=== PATIENT | male | born 1975 | race Caucasian/White ===

== ENCOUNTER 2022-06-24 01:05 | Day surgery (SDC) | payer OTHER, SELFPAY ==
[2022-06-16 15:25] VITALS: BMI 29.2
--- NOTE | 2022-06-23 16:55 | PM.HPGS ---
History of Present Illness History of Present Illness Consent: Risks, benefits, and alternatives have been discussed and questions answered. Patient agrees to proceed with procedure. Chief complaint: GERD Narrative: Fredo Jacobson is a 46 year old male referred because of refractory reflux symptoms. Despite taking esomeprazole twice a day and now pantoprazole, he will wake up with burning and regurgitation. This is primarily at night, even if he does not eat for 3 hours before laying down. It has gotten to the point that he will wake up gagging and choking on regurgitated liquids. He denies dysphagia. Review of Systems Review of Systems: All systems reviewed & are unremarkable except as noted in HPI and below PMFSH Social History Social History Smoking status: Former smoker Tobacco type: cigarettes Substance use type: does not use Living arrangements: with family Spiritual care concerns: No Meds Home Medications and Allergies Home Medications Medication Instructions Recorded Confirmed Type alprazolam 0.5 mg tablet 0.5 mg PO TID PRN Anxiety 06/16/22 06/24/22 History aspirin 81 mg tablet 81 mg PO DAILY 06/16/22 06/24/22 History esomeprazole magnesium 40 mg 40 mg PO QAM 06/16/22 06/24/22 History capsule,delayed release (Nexium) nebivolol 10 mg tablet (Bystolic) 10 mg PO DAILY 06/16/22 06/24/22 History pantoprazole 40 mg tablet,delayed 40 mg PO QPM 06/16/22 06/24/22 History release Allergies Allergy/AdvReac Type Severity Reaction Status Date / Time No Known Allergies Allergy Verified 06/24/22 10:24 Exam Const: General: alert Orientation/consciousness: patient oriented x3 Resp: Auscultation: clear to auscultation bilaterally Cardio: Rhythm: regular rhythm GI: GI Palp: Yes Soft to palpation and No Tenderness to palpation present (GI) Neuro: General: patient oriented x3 Assessment and Plan Assessment and plan (1) GERD (gastroesophageal reflux disease): Code(s): K21.9 - Gastro-esophageal reflux disease without esophagitis Status: Acute Assessment and Plan: EGD with possible biopsy or dilatation or cautery.
[2022-06-24 10:27] VITALS: BP 142/99; PULSE 57; RESP 20; TEMP 36.6; O2SAT 99; BMI 29.8
[2022-06-24] MEDS: LACTATED RINGERS 1,000 ML 150 ML IV CONT (10:30)
--- NOTE | 2022-06-24 10:59 | P.PNAN_ITS ---
Anes - Initial Pre Proc Eval Procedure: Operation Date: 06/24/22 11:30 Proposed Procedures p Esophagogastroduodenoscopy - Phil Arechiga MD Date/Time: 06/24/22 10:59 Surgeon: Pihl Arechiga MD Pre Op Diagnosis: GERD Patient Data Age: 46 Gender: M Height: 1.85 m Weight: 102.7 kg Last Vital Signs Temp 97.8 F 06/24/22 10:27 Pulse 57 L 06/24/22 10:27 Resp 20 06/24/22 10:27 BP 142/99 H 06/24/22 10:27 Pulse Ox 99 06/24/22 10:27 O2 Del Method Room Air 06/24/22 10:27 Allergies Allergy/AdvReac Type Severity Reaction Status Date / Time No Known Allergies Allergy Verified 06/24/22 10:24 Home Medications Medication Instructions Recorded Confirmed Type alprazolam 0.5 mg tablet 0.5 mg PO TID PRN Anxiety 06/16/22 06/24/22 History aspirin 81 mg tablet 81 mg PO DAILY 06/16/22 06/24/22 History esomeprazole magnesium 40 mg 40 mg PO QAM 06/16/22 06/24/22 History capsule,delayed release (Nexium) nebivolol 10 mg tablet (Bystolic) 10 mg PO DAILY 06/16/22 06/24/22 History pantoprazole 40 mg tablet,delayed 40 mg PO QPM 06/16/22 06/24/22 History release Patient hx anesthesia problems: none Family hx anesthesia problems: none Results Review: All pre-operative results and documents have been reviewed as part of the pre- operative evaluation. [facility] Social History Social History Smoking status: Former smoker Tobacco type: cigarettes Substance use type: does not use Living arrangements: with family Spiritual care concerns: No Anes - Eval Final PreProcedure Day of Procedure 06/24/22 10:59 Patient weight: normal Heart: regular rate and rhythm Lungs: clear to auscultation Airway: Mallampati scale class II Neurological: alert and oriented Last oral intake: >/= 8 hours ASA classification: II Emergent: no Anesthetic plan: proceed Anesthesia type and monitoring: general GIVS and standard monitoring Results Review: All pre-operative results and documents have been reviewed as part of the pre- operative evaluation. Informed Consent: The patient's anesthetic plan and its attendant risks and benefits were discussed with the patient/family/POA. Questions were solicited and answers provided to the satisfaction of the patient/family/POA.
[2022-06-24 11:51] VITALS: BP 113/75; PULSE 64; RESP 17; O2SAT 96
[2022-06-24 12:01] VITALS: BP 119/69; PULSE 60; RESP 18; O2SAT 97
[2022-06-24 12:11] VITALS: BP 131/87; PULSE 58; RESP 14; O2SAT 100
== END 2022-06-24 12:21 | disposition home or self-care (01) ==
PROVIDERS: PCP Nurse Practitioner Family; Visit Provider Internal Medicine Gastroenterology
PROC: 0DJ08ZZ Inspection of Upper Intestinal Tract, Via Natural or Artificial Opening Endoscopic (ICD-10-PCS; CPT 43235; principal; 2022-06-24 11:30)
DX: K21.9 Gastro-esophageal reflux disease without esophagitis (principal); K44.9 Diaphragmatic hernia without obstruction or gangrene; Z79.82 Long term (current) use of aspirin; Z87.891 Personal history of nicotine dependence
CPT/HCPCS: 43239; 88305; J2704; J7120

== ENCOUNTER 2023-01-11 08:46 | Outpatient (CLI) | payer OTHER, SELFPAY ==
--- NOTE | ~2023-01-11 | XR_ITS ---
EXAMINATION: XR UGI w barium swallow DATE: 01/11/2023 09:28 INDICATION: Gastroesophageal reflux disease without esophagitis TECHNIQUE: The patient drank thick barium, gas-producing crystals, and thin barium. Fluoroscopic spot radiographs of the hypopharynx, esophagus, stomach and proximal small bowel were obtained. A total o f 1100 fluoroscopic images were recorded. Fluoroscopy exposure time was 2.0 minutes. COMPARISON: None. FINDINGS: The pharynx is symmetric and without evidence of mass lesion or mucosal irregularity. The esophagus i s normal without mass or stricture. Esophageal motility is normal. There is a small sliding-type hiat al hernia extending 3-4 cm above level of the diaphragm. There is a single episode of reflux from the intra-abdominal and intrathoracic portion the stomach provocative maneuvers but no further gastroeso phageal reflux. The stomach and proximal small bowel are normal. IMPRESSION: 1. Small sliding-type hiatal hernia with single episode of reflux from the intra-abdominal into the i ntrathoracic portion of the stomach but without observed subsequent gastroesophageal reflux. Reviewed, dictated and finalized at location A. IMPRESSION: 1. Small sliding-type hiatal hernia with single episode of reflux from the intr a-abdominal into the intrathoracic portion of the stomach but without observed subsequent gastroesophageal reflux.
== END 2023-01-11 08:47 | disposition home or self-care (01) ==
PROVIDERS: PCP Nurse Practitioner Family; Visit Provider Surgery
DX: K21.9 Gastro-esophageal reflux disease without esophagitis (principal); K44.9 Diaphragmatic hernia without obstruction or gangrene
CPT/HCPCS: 74240

== ENCOUNTER 2023-03-29 13:09 | Outpatient (CLI) | payer OTHER, SELFPAY ==
--- NOTE | ~2023-03-29 | XR_ITS ---
EXAMINATION: XR chest 2V DATE: 03/29/2023 13:51 INDICATION: Gastroesophageal reflux disease TECHNIQUE: PA and lateral views of the chest are obtained. COMPARISON: None available FINDINGS: The lungs are free of acute opacities. No pleural effusion or pneumothorax. The cardiomedia stinal silhouette is normal. There is mild thoracic spondylosis. IMPRESSION: 1. No acute cardiopulmonary abnormality. Reviewed, dictated and finalized at location B. GER DOCUMENT
[2023-03-29 13:45] LABS: Basophils Absolute Auto 0.1 K/mm3 (0.0-0.1); Basophils Percent Auto 0.9 % (0.2-1.2); Eosinophils Absolute Auto 0.2 K/mm3 (0-0.3); Eosinophils Percent Auto 2.1 % (0-4.4); Hematocrit 44.3 % (42.0-52.0); Hemoglobin 14.9 g/dL (14.0-18.0); Immature Granulocyte Absolute 0.02 K/mm3 (0.00-0.031); Immature Granulocyte Percent A 0.3 % (0-0.5); Lymphocytes Absolute Auto 2.29 K/mm3 (0.9-3.2); Lymphocytes Percent Auto 29.7 % (18.3-44.2); Mean Corpuscular HGB Conc 33.6 g/dl (32-36); Mean Corpuscular Hemoglobin 29.9 pg (26-34); Monocytes Absolute Auto 0.5 K/mm3 (0.1-0.6); Monocytes Percent Auto 6.8 % (2.6-8.5); Neutrophils Absolute Auto 4.6 K/mm3 (1.3-6.7); Neutrophils Percent Auto 60.2 % (45.5-73.1); Platelet Count Result 239 k/mm3 (150-375); Red Blood Count 4.98 M/mm3 (4.6-6.20); Red Cell Distribution Width 12.7 % (11.5-14.5); White Blood Count 7.7 K/mm3 (4.5-10.0)
[2023-03-29 14:04] LABS: Anion Gap 10 mmol/L (8-16); Blood Urea Nitrogen 21 mg/dL (9-20); Calcium 9.4 mg/dL (8.4-10.2); Carbon Dioxide 25 mmol/L (22-30); Chloride 105 mmol/L (98-107); Estimated Glomerular Filt Rate > 60; Glucose 88 mg/dL (65-110); Potassium 3.8 mmol/L (3.4-5.0); Sodium 140 mmol/L (137-145)
--- NOTE | 2023-03-29 15:00 | ECG_ITS ---
Measurements Intervals [place] Rate: 72 P: 33 CT: 173 QRS: -9 QRSD: 99 T: 11 QT: 371 QTc: 408 Interpretive Statements SINUS RHYTHM NORMAL ECG NO PREVIOUS ECG AVAILABLE FOR COMPARISON Electronically Signed On 03-29-2023 17:23:07 [employer] by Greg Ramirez M.D.
== END 2023-03-29 13:10 | disposition home or self-care (01) ==
LOC: ANHSURGERY 13:16
PROVIDERS: PCP Nurse Practitioner Family; Visit Provider Surgery
DX: K21.9 Gastro-esophageal reflux disease without esophagitis (principal)
CPT/HCPCS: 36415; 71046; 80048; 85025; 86850; 86900; 86901; 93005

== ENCOUNTER 2023-04-02 09:02 | Inpatient (IN) | payer OTHER, SELFPAY ==
[2023-03-29 10:38] VITALS: BMI 29.0
--- NOTE | 2023-03-29 10:42 | PC.NURSE ---
Report to the Outpatient Waiting Room, entrance under the green pavilion located off [facility], at time 10:00 on date 04/01/23. Planned Procedure Time: 12:00. Time changes happen often and if your time is changed the preop area will call you the afternoon before. - You and your visitor will be asked to self-screen and do not enter if you have any COVID symptoms. - A mask is optional within the hospital at this time. Patients may have clear liquids (water, carbonated beverages, clear teas, apple juice) until 3 hours prior to surgery (9:00) with a maximum of 20 ounces. - No food from midnight until time of surgery Take the following medications with a SIP of water the morning of surgery: BYSTOLIC, XANAX IF NEEDED DO NOT STOP ANY OF YOUR OTHER PRESCRIPTION MEDICATIONS PRIOR TO SURGERY ?EXCEPT THE FOLLOWING Medications to discontinue per physician: VITAMINS/SUPPLEMENTS Date to take last dose: NO MORE UNTIL AFTER SURGERY Please no make-up, nail romansh, hairspray, perfume, deodorant, or body powder the day of surgery. No jewelry (including any body piercings) or valuables the day of surgery, leave them at home. Please take a shower or bath the night before, or the morning of, surgery with an antibacterial soap. Wear comfortable, loose fitting clothing. - Jewelry must be removed prior to entering the operating room. Rings and piercings that are not removed may be cut off. - The hospital will not accept responsibility for valuables. - Please leave all valuables, including medications, at home the day of surgery. If you are going home after surgery, a licensed vibratory pile driver must drive you home. - NO public transportation without another adult if you receive anesthesia. - We recommend that an adult stay with you for 24 hours following discharge. - We also recommend that you do not drive, make important decision, drink alcoholic beverages, or take any drugs that were not prescribed by your health care provider for at least 24 hours after your discharge time. Follow any additional instructions given to you from your surgeon. If you or anyone in your household have experienced Covid symptoms in the past week, please notify your surgeon or the nurse liaison at the phone number below for possible testing. Telephone instructions given to PT - [facility] and asked if any additional questions and then verbalized understanding. Patient advised to call surgeon office or pre surgery nurse liaison [phone] if any additional questions.
--- NOTE | 2023-03-31 15:53 | PM.IMHP ---
H&P: HPI History of Present Illness Date/Time: 03/31/23 15:53 Chief Complaint: Gastroesophageal reflux Narrative: Patient is a 47-year-old man who for many years has had symptomatic gastroesophageal reflux with heartburn. He was seen by Dr. Arechiga back in June and an EGD was performed. He had a small hiatal hernia and nonerosive reflux disease. Biopsies showed mild chronic inflammation but no metaplasia. Patient has been taking Nexium twice a day. Even with this medication he will occasionally wake up with burning and regurgitation. The symptoms are worse if he eats at night. Intermittently he will need to sleep sitting up. He had a barium swallow upper GI which showed a small hiatal hernia and an episode of reflux. He also had esophageal manometry at [facility]. This showed normal esophageal peristalsis and a hypotensive lower esophageal sphincter. An incompetent lower esophageal sphincter was also noted on his EGD. After thorough discussion, patient is taken to surgery now for laparoscopic Prema fundoplication for recalcitrant reflux. Review of Systems Review of Systems: All systems reviewed & are unremarkable except as noted in HPI and below (HPI and those items noted below) Constitutional: Constitutional: Denies chills and Denies fever(s) Cardiovascular: Cardiovascular: Denies chest pain, Denies diaphoresis, Denies dyspnea and Denies paroxysmal nocturnal dyspnea Respiratory: Respiratory: Denies chest congestion, Denies cough and Denies dyspnea Integumentary/Breasts: Skin/Breast: Denies lesions and Denies rash [facility] Past Medical History Medical History Hypertension Surgical History Surgical History Hx of shoulder surgery R shoulder labrum repair in 2020 at [facility] Family History Family History Other Hypertension Social History Social History Smoking packs per day: 1 Smoking cigarettes per day: 20.0 Years smoked: 16 Smoking pack-years: 16.00 Smoking status: Former smoker Tobacco type: cigarettes Smoking end date: 04/12/10 Alcohol intake: never Substance use: never Substance use type: does not use Living arrangements: with family Occupation/Education: occupation Spiritual care concerns: No Meds Home Medications and Allergies Home Medications Medication Instructions Recorded Confirmed Type alprazolam 0.5 mg tablet 0.5 mg PO TID PRN Anxiety 06/16/22 03/29/23 History aspirin 81 mg tablet 81 mg PO DAILY 06/16/22 03/29/23 History esomeprazole magnesium 40 mg 40 mg PO QAM 06/16/22 03/29/23 History capsule,delayed release (Nexium) nebivolol 10 mg tablet (Bystolic) 10 mg PO DAILY 06/16/22 03/29/23 History omega 0-ufq-fob-fish oil 1,000 mg 1 cap PO DAILY 03/29/23 03/29/23 History (120 mg-180 mg) capsule (Fish Oil) Allergies Allergy/AdvReac Type Severity Reaction Status Date / Time No Known Allergies Allergy Verified 03/29/23 10:37 Exam Const: General: comfortable, no acute distress, alert and awake HENMT: Head: normocephalic and atraumatic Mouth: Yes Normal oral and palatal mucosa present Eyes: Conjunctivae: conjunctivae normal Pupils: Equal, round and reactive pupils present EOM: EOMs intact bilaterally Neck: Neck: normal visual inspection, no lymphadenopathy and nontender Resp: Effort & Inspection: normal respiratory effort Auscultation: clear to auscultation bilaterally Cardio: Rate: regular rate Rhythm: regular rhythm Heart sounds: no gallops, no murmurs and no rubs GI: Inspection: non-distended GI Palp: Yes Soft to palpation, No Tenderness to palpation present (GI), No Hepatomegaly present and No Splenomegaly present Skin: Lesions: no lesions Rashes: no rashes Neuro: General: no focal motor deficits and CN'
[2023-04-01] VITALS (13 sets, daily range): BP systolic 117–147; BP diastolic 73–102; PULSE 64–101; RESP 15–20; TEMP 36.2–37.1; O2SAT 92–99
--- NOTE | 2023-04-01 08:36 | P.PNAN_ITS ---
Anes - Initial Pre Proc Eval Procedure: Operation Date: 04/01/23 12:00 Proposed Procedures p Laparoscopic Prema Fundoplication - Hunter Cuadra MD Date/Time: 04/01/23 08:36 Surgeon: Hunter Cuadra MD Pre Op Diagnosis: gerd Patient Data Age: 47 Gender: M Height: 1.85 m Weight: 99.8 kg Allergies Allergy/AdvReac Type Severity Reaction Status Date / Time No Known Allergies Allergy Verified 04/01/23 18:44 Home Medications Medication Instructions Recorded Confirmed Type alprazolam 0.5 mg tablet 0.5 mg PO TID PRN Anxiety 06/16/22 04/01/23 History aspirin 81 mg tablet 81 mg PO DAILY 06/16/22 04/01/23 History esomeprazole magnesium 40 mg 40 mg PO BID 06/16/22 04/01/23 History capsule,delayed release (Nexium) nebivolol 10 mg tablet (Bystolic) 10 mg PO DAILY 06/16/22 04/01/23 History omega 9-oeq-kqp-fish oil 1,000 mg 1 cap PO DAILY 03/29/23 04/01/23 History (120 mg-180 mg) capsule (Fish Oil) Patient hx anesthesia problems: none Family hx anesthesia problems: none Results Review: All pre-operative results and documents have been reviewed as part of the pre- operative evaluation. [facility] Past Medical History Medical History Hypertension Surgical History Surgical History Hx of shoulder surgery R shoulder labrum repair in 2020 at [facility] Family History Family History Other Hypertension Social History Social History Smoking packs per day: 1 Smoking cigarettes per day: 20.0 Years smoked: 16 Smoking pack-years: 16.00 Smoking status: Former smoker Tobacco type: cigarettes Smoking end date: 04/12/10 Alcohol intake: never Substance use: never Substance use type: does not use Do You Feel Safe in your Home?: Yes Lack of Transportation: No Lack of Food: Never True Current Housing: I Have Housing Concerned About Future Housing: No Difficulty Paying Gas/Electric Bills: No Difficulty Paying for Meds: No Currently Unemployed: No Education: Trade/Vocational Certificate Difficulty w/ Childcare or Family Care: No Living arrangements: with family Occupation/Education: occupation Spiritual care concerns: No Anes - Eval Final PreProcedure Day of Procedure 04/01/23 08:36 Patient weight: overweight Heart: regular rate and rhythm Lungs: clear to auscultation Airway: Mallampati scale class II Neurological: alert and oriented Last oral intake: >/= 8 hours ASA classification: II Emergent: no Anesthetic plan: proceed Anesthesia type and monitoring: general ETT and standard monitoring Results Review: All pre-operative results and documents have been reviewed as part of the pre- operative evaluation. Informed Consent: The patient's anesthetic plan and its attendant risks and benefits were discussed with the patient/family/POA. Questions were solicited and answers provided to the satisfaction of the patient/family/POA.
[2023-04-01] MEDS: LACTATED RINGERS 1,000 ML 30 ML IV CONT ×2 (10:31→16:27)
[2023-04-01] MEDS: ACETAMINOPHEN 500 MG TABLET 1000 MG PO (10:43)
--- NOTE | 2023-04-01 11:53 | WPDHPUPDATE1 ---
History and Physical Update Update Date/Time: 04/01/23 11:53 History and Physical has been reviewed, including an updated exam of the patient. There are NO changes in the patient's condition. Risks, benefits, and alternatives have been discussed and questions answered. Patient agrees to proceed with procedure.
[2023-04-01] MEDS: ceFAZolin 2 GM/D5W 50 ML 2 GM/50 ML BAG IVPB (12:01)
[2023-04-01] MEDS: BUPIVACAINE/EPINEPHRINE 0.5% 50 ML VIAL 30 ML INFILTRATE (12:40)
--- NOTE | 2023-04-01 16:08 | SUR.OPER ---
400 mL of clear, yellow urine drained from schaefer catheter in OR.
[2023-04-01] MEDS: fentaNYL CITRATE INJ (*CRX) 100 MCG/2 ML VIAL 25 MCG IV PUSH ×8 (16:39→17:50)
--- NOTE | 2023-04-01 17:13 | W.PM.PROC2 ---
Procedure Note - Detailed Date of Procedure 04/01/23 Pre-op Diagnosis gerd Post-op Diagnosis Other (Gastroesophageal reflux disease, right pneumothorax) Procedure Performed Laparoscopic Prema fundoplication, placement right chest 2 Surgeon Hunter Cuadra MD Senior Front End Engineer Chay Escalante, [facility] Anesthesia General and Local Indications Patient has had recalcitrant gastroesophageal reflux symptoms despite taking Nexium twice a day. He had an EGD that showed nonerosive gastroesophageal reflux. His esophageal manometry showed adequate peristalsis and a hypotensive lower esophageal sphincter. After discussion, he wishes to go ahead with laparoscopic Prema fundoplication to be carried out today. Findings Patient had a lot of adhesions particularly at the hernia at the esophageal hiatus. There were and many adhesions of the esophagus in the mediastinum suggesting chronic reflux and its consequences. During mobilization of the upper esophagus, a hole was made in the parietal pleura on the right side of the chest. This is unusual in that generally the left lung is more in jeopardy for pneumothorax during this procedure. In this case, however the right parietal pleura was adherent to the upper esophagus and during the dissection did developed a hole leading to a pneumothorax. Otherwise the patient had 6 cm of intra abdominal esophagus and a full 360 degree wrap. The procedure took longer but had what appeared to be an excellent result. Description of Procedure Patient was taken to surgery and induced into general anesthesia. The abdomen was prepped and draped. The initial trocar was planned for the midline above the umbilicus. Local was infiltrated and a small incision made. The varies needle was placed intraperitoneal as documented by saline drop test. We then insufflated through the varies needle until adequate abdominal distension had been obtained. And applied Medical 10 11 port optical trocar was then used to enter the peritoneal cavity. Full insufflation was then carried out and the camera was positioned here. We then placed next the left lateral subcostal 10 11 trocar using local anesthetic and direct visualization. With the camera moved to the left side, 2 more 10 11 ports were placed above the initial midline trocar and about 8 cm apart on the right and left side. From here, I went ahead and placed the Shant retractor. The initial plan for the Shant was directly over the cartilaginous portion of the sternum near the xiphoid process. I was able to advance the Shant into the abdomen but the direction it could be placed was not consistent with 1 that would elevate the lateral segment of the left lobe of the liver. I infiltrated more local and enlarged the incision to the patient's right. Still, I could not pass the lower portion of the sternum. The xiphoid was very difficult to feel and I really could only feel it once I had made the larger incision. From there, I placed an incision farther to the right and a little more caudal which worked nicely. I was able to advance the Shant retractor and elevate the lateral segment of the left lobe of the liver and secure the Shant retractor to the post, keeping it in good position. We used the LigaSure for nearly all dissection. I took down the gastrohepatic ligament which was mostly clear. There was lot of fatty tissue associated with the lesser omentum and perigastric fat socked in the esophageal hiatus. This was difficult to dissect. I started just medial to the right anna marie and carefully dissected until I was able to spread in to the mediastinum. From there, I continued the dissection slowly and created a small window into the mediastinum to the right of the esophagus. It was still difficult to see the posterior aspect of the right anna marie or any of the left anna marie due to the large amount of omentum and the fatty tissue in the hiatus. We continued dividing adhesive bands trying to stay mostly i
--- NOTE | 2023-04-01 18:51 | ADMGEN ---
This patient, Fredo Jacobson, was admitted to 3 [facility] Surg Room 300-01. Patient/family oriented to hospital policies and general routines including ID bracelet, bed and alarms, visiting hours, pain management, procedures, bathroom and other care routines, personal items, smoking policy, room service/diet, and visiting hours. Information on how to activate the Rapid Response Team has been discussed. Patient/Family are encouraged to report perceived risks to care and to ask questions if they do not understand what they are told or what they should do.
[2023-04-01] MEDS: MORPHINE SULFATE (*CRX) 4 MG/ML INJ IV PUSH (18:58)
[2023-04-01] MEDS: LACTATED RINGERS 1,000 ML 80 ML IV CONT (18:58)
[2023-04-01] MEDS: HYDROcodone/acetaminophen (*CRX) 10-325 MG TABLET 1 TAB PO (21:07)
[2023-04-01] MEDS: ENOXAPARIN 30 MG/0.3 ML SYRINGE SUB-Q (21:08)
[2023-04-01] MEDS: WATER FOR IRRIGATION, STERILE 1,000 ML BOTTLE 1000 ML (23:15)
[2023-04-02] VITALS (8 sets, daily range): BP systolic 122–137; BP diastolic 65–93; PULSE 88–100; RESP 14–20; TEMP 36.2–37.1; O2SAT 93–97
--- NOTE | ~2023-04-02 | XR_ITS ---
XR chest 1V portable DATE: 04/03/2023 05:46 INDICATION: Pneumothorax TECHNIQUE: Portable AP chest on 04/03/2023 at 0533 hours COMPARISON: 04/02/2023 PA and lateral chest FINDINGS: Right thoracostomy tube is unchanged in position since 04/02/2023. No pneumothorax is evide nt. There are bilateral infiltrates and/atelectasis, most prominent in both medial upper and both lower l blanca zones, left greater than right. Possible small left pleural effusion. Heart size is not optimally evaluated on AP projection because of magnification. IMPRESSION: Right thoracostomy tube; no current pneumothorax Bilateral infiltrates and/or atelectasis, relatively stable since 04/02/2023 and Reviewed, dictated and finalized at location A. OP ADMIN IMPRESSION: Right thoracostomy tube; no current pneumothorax Bilateral infiltrates and/or atelectasis, relatively stable since 04/02/2023 mary adams
--- NOTE | ~2023-04-02 | XR_ITS ---
EXAMINATION: XR chest 2V DATE: 04/02/2023 14:26 INDICATION: Chest tube suction to water seal TECHNIQUE: PA and lateral views of the chest were obtained. COMPARISON: Chest radiograph dated 04/02/2023 10:07 AM FINDINGS: Apically directed right chest tube remains in place with distal tip along the right superior mediasti num. No evident pneumothorax. Small lung volumes with persistent opacities at the medial aspect of th e bilateral lower lung zones most likely representing atelectasis although differential includes pneu monia. Blunting at the left posterior sulcus which could represent small pleural effusion or atelecta sis. Mild cardiomegaly. IMPRESSION: 1. Right chest tube remains in place with no pneumothorax. 2. Small lung volumes with persistent opacities at the medial aspect of the bilateral lower lung zone s and favor atelectasis over pneumonia. 3. Possible small left pleural effusion. 4. Cardiomegaly . Reviewed, dictated and finalized at location A. RNMENT PROPERTY INSPECTOR IMPRESSION: 1. Right chest tube remains in place with no pneumothorax. 2. Small lung volumes with persistent opacities at the medial aspect of the shonda ateral lower lung zones and favor atelectasis over pneumonia. 3. Possible small left pleural effusion. 4. Cardiomegaly .
--- NOTE | ~2023-04-02 | XR_ITS ---
EXAMINATION: XR chest-chest tube insert/pos INDICATION: Chest tube insertion, right pneumothorax TECHNIQUE: Portable AP chest at 1619 hours COMPARISON: 1422 hours FINDINGS: A right-sided chest tube has been inserted. The previously described right pneumothorax is no longer evident. The right lung is mostly reinflated. There appears to be persistent atelectasis in the right lung base. There is moderate retrocardiac opacification on the left. No pleural effusion i s identified. The endotracheal tube ends approximately 4.5 cm above the xander. IMPRESSION: 1. No persistent right pneumothorax identified post chest tube insertion. 2. Probable partial persistent atelectasis of the right lower lobe. 3. Retrocardiac opacities on the left, consistent with atelectasis versus pneumonia. Reviewed, dictated and finalized at location L. T REGISTRY OFFICER IMPRESSION: 1. No persistent right pneumothorax identified post chest tube insertion. 2. Probable partial persistent atelectasis of the right lower lobe. 3. Retrocardiac opacities on the left, consistent with atelectasis versus pneum onia.
--- NOTE | ~2023-04-02 | XR_ITS ---
Portable chest x-ray Comparison: 04/02/2023 Clinical History: Pneumothorax Findings: Right-sided chest tube remains in place. No visible pneumothorax. There is probable mild b ibasilar atelectatic change. Cardiomediastinal silhouette is stable. Bones and soft tissues are unre markable. Impression: Right-sided chest tube without visible pneumothorax. Probable bibasilar atelectatic change. Correlate for pneumonia. Reviewed, dictated and finalized at location . ER AND WRAPPER PACKER Impression: Right-sided chest tube without visible pneumothorax. Probable bibasilar atelectatic change. Correlate for pneumonia.
--- NOTE | ~2023-04-02 | XR_ITS ---
EXAMINATION: XR chest 1V portable INDICATION: Hypoxia TECHNIQUE: Portable AP chest at 1423 hours COMPARISON: 03/29/2023 FINDINGS: There is a moderate size right pneumothorax. The endotracheal tube ends 3.9 cm above the ca evangelista. There is moderate atelectasis of the right lung. The cardiomediastinal silhouette is normal. IMPRESSION: 1. Moderate size right pneumothorax. These findings were discussed with Dr. Hunter Cuadra MD at 14 39 hours on 04/01/2023. Reviewed, dictated and finalized at location L. RAFT SEAT UPHOLSTERER IMPRESSION: 1. Moderate size right pneumothorax. These findings were discussed with Dr. Alem Cuadra MD at 1439 hours on 04/01/2023.
--- NOTE | ~2023-04-02 | XR_ITS ---
Portable chest x-ray Comparison: 04/01/2023 Clinical History: Right pneumo thorax Findings: Right-sided chest tube is in place. No definite right pneumothorax seen. There is hazy bib asilar and perihilar airspace disease, left worse than right. Cardiomediastinal silhouette is stable . Bones and soft tissues are unremarkable. Impression: Right-sided chest tube without right pneumothorax. Patchy bibasilar and perihilar airspace disease, left worse than right. Correlate for atelectasis/pul monary edema versus pneumonia. Reviewed, dictated and finalized at [facility]. P MAKER Impression: Right-sided chest tube without right pneumothorax. Patchy bibasilar and perihilar airspace disease, left worse than right. Correla te for atelectasis/pulmonary edema versus pneumonia.
--- NOTE | ~2023-04-02 | XR_ITS ---
XR chest 1V portable 04/03/2023 16:06 Indication: Status post chest tube removal. Evaluate for pneumothorax. Procedure: AP portable chest Comparison: Comparison to multiple prior studies sequentially, with oldest reviewed study dated 03/13. Findings: No pneumothorax identified. Bibasilar airspace disease is present unchanged. Possible small effusion. No acute osseous abnormality. Impression: 1: Bibasilar infiltrates may represent atelectasis or pneumonia. Reviewed, dictated and finalized at location A. DING COMPONENTS DESIGNER Impression: 1: Bibasilar infiltrates may represent atelectasis or pneumonia.
[2023-04-02] MEDS: MORPHINE SULFATE (*CRX) 4 MG/ML INJ IV PUSH ×2 (03:25→19:32)
[2023-04-02] MEDS: LACTATED RINGERS 1,000 ML 80 ML IV CONT (06:06)
[2023-04-02] MEDS: HYDROcodone/acetaminophen (*CRX) 10-325 MG TABLET 1 TAB PO ×3 (06:16→21:35)
[2023-04-02 07:28] LABS: Hemoglobin 13.2 g/dL (14.0-18.0); Mean Corpuscular Volume 90.9 fl (80-100); Mean Platelet Volume 9.8 fl (7.4-10.4); Platelet Count Result 172 k/mm3 (150-375); Red Cell Distribution Width 12.7 % (11.5-14.5); White Blood Count 11.7 K/mm3 (4.5-10.0)
[2023-04-02 07:40] LABS: Potassium 4.1 mmol/L (3.4-5.0)
[2023-04-02 07:42] LABS: Anion Gap 5 mmol/L (8-16); Blood Urea Nitrogen 17 mg/dL (9-20); Calcium 8.8 mg/dL (8.4-10.2); Carbon Dioxide 25 mmol/L (22-30); Chloride 103 mmol/L (98-107); Estimated CRCL calculation 112 ml/min; Estimated Glomerular Filt Rate > 60; Glucose 106 mg/dL (65-110); Sodium 133 mmol/L (137-145)
--- NOTE | 2023-04-02 08:15 | PM.PNGS ---
Progress Note: A&P Assessment and Plan (1) Nonerosive gastroesophageal reflux disease: Code(s): K21.9 - Gastro-esophageal reflux disease without esophagitis Status: Chronic Assessment and Plan: Tolerating liquids well after fundoplication yesterday. Advanced to full liquids. Up in chair and walk in room today. Also add Ensure nutritional supplements. (2) Pneumothorax, right: Code(s): J93.9 - Pneumothorax, unspecified Status: Acute Assessment and Plan: No pneumothorax on suction. Will get chest x-ray on water seal. Subjective Subjective Date/Time Seen: 04/02/23 08:15 Post Op day: 1 Patient reports: still having pain (Mainly chest tube site), tolerating liquids well (No dysphagia as yet) and afebrile Exam Const: General: comfortable and no acute distress Orientation/consciousness: patient oriented x3 Chest: Chest palpation & inspection: abnormal inspection of the chest (Right chest tube dressing dry and intact.) Resp: Effort & Inspection: normal respiratory effort and other (No pleural leak noted) Auscultation: clear to auscultation bilaterally GI: Inspection: incision (Dry and healing) GI Palp: Yes Soft to palpation, Yes Tenderness to palpation present (GI), No Guarding due to palpation present (GI) and No Rebound tenderness present Auscultation: normal bowel sounds Neuro: General: patient oriented x3 and no focal motor deficits Extrem: General: no calf tenderness and no edema Psych: Affect: normal affect Insight: Good insight present (Psych) Judgement: Good judgement present (Psych) Objective Data Vital Signs Vital Signs: Vital Signs - 24 hr 04/01/23 10:11 04/01/23 16:27 04/01/23 16:30 Temperature 36.6 C 36.3 C L Pulse Rate 64 100 82 Respiratory Rate 16 18 20 Blood Pressure 147/102 H 136/87 117/80 Pulse Oximetry 99 92 94 Oxygen Delivery Room Air Simple Face Mask Simple Face Mask Oxygen Flow Rate 12 12 04/01/23 16:45 04/01/23 17:00 04/01/23 17:15 Temperature Pulse Rate 82 101 H 98 Respiratory Rate 17 17 16 Blood Pressure 129/88 126/73 136/80 Pulse Oximetry 96 96 96 Oxygen Delivery Simple Face Mask Simple Face Mask Nasal Cannula Oxygen Flow Rate 12 6 6 04/01/23 17:30 04/01/23 17:45 04/01/23 18:20 Temperature 36.3 C L Pulse Rate 101 H 97 94 Respiratory Rate 15 20 18 Blood Pressure 136/92 H 128/82 129/77 Pulse Oximetry 94 94 96 Oxygen Delivery High Flow Nasal Cannula High Flow Nasal Cannula Oxygen Flow Rate 6 6 04/01/23 18:35 04/01/23 19:05 04/01/23 20:05 Temperature 36.4 C 36.2 C L 37.1 C Pulse Rate 99 100 100 Respiratory Rate 18 18 18 Blood Pressure 130/76 134/88 117/79 Pulse Oximetry 96 97 97 Oxygen Delivery Oxygen Flow Rate 04/01/23 20:00 04/02/23 00:30 04/02/23 03:43 Temperature 36.9 C 36.3 C L Pulse Rate 100 96 Respiratory Rate 14 16 Blood Pressure 122/70 122/78 Pulse Oximetry 97 96 95 Oxygen Delivery High Flow Nasal Cannula Oxygen Flow Rate 6 04/02/23 07:43 Temperature 36.9 C Pulse Rate 90 Respiratory Rate 18 Blood Pressure 123/80 Pulse Oximetry 96 Oxygen Delivery Oxygen Flow Rate Intake/Output Intake/Output: Intake & Output 03/30/23 03/31/23 04/01/23 04/02/23 23:59 23:59 23:59 23:59 Intake Total 50 1350 Output Total 915 Balance 50 435 Meds/Results Medications: Active Medications Generic Name Dose Route Start Last Admin Trade Name Freq PRN Reason Stop Dose Admin Acetaminophen 500 mg 04/01/23 17:58 Acetaminophen 500 Mg Tablet PO Q6H PRN Mild Pain (1-3) or Fever Hydrocodone Bitart/Acetaminophen 1 tab 04/01/23 17:58 Hydrocodone/Acetaminophen (*Crx) 5-325 Mg Tablet PO Q4H PRN Pain Rated 4-6 Hydrocodone Bitart/Acetaminophen 1 tab 04/01/23 17:58 04/02/23 06:16 Hydrocodone/Acetaminophen (*Crx) 10-325 Mg Tablet PO 1 tab Q6H PRN Administration Pain Rated 7-10 Alprazolam 0.5 mg 04/01/23 17:58 Alprazolam (*Crx) 0.
[2023-04-02] MEDS: ASPIRIN 81 MG CHEWABLE TABLET PO (09:05)
[2023-04-02] MEDS: ENOXAPARIN 40 MG/0.4 ML SYRINGE SUB-Q (09:05)
[2023-04-02] MEDS: NEBIVOLOL HCL 5 MG TABLET 10 MG PO (09:06)
[2023-04-02] MEDS: PANTOPRAZOLE 40 MG TABLET PO (09:08)
--- NOTE | 2023-04-02 10:29 | WPDANESPN ---
Anes - Prog Note Post-Op Date/Time: 04/02/23 10:29 Cardiovascular status: normal Respiratory status: normal Airway patency: baseline Mental status: baseline Post-Op hydration status: normal Vital Signs: Last Vital Signs Temp 98.5 F 04/02/23 07:43 Pulse 88 04/02/23 09:06 Resp 18 04/02/23 07:43 BP 123/80 04/02/23 07:43 Pulse Ox 96 04/02/23 09:08 O2 Del Method High Flow Nasal Cannula 04/02/23 09:08 O2 Flow Rate 4 04/02/23 09:08 Pain Score (VAS): 0/10 I/O: Intake & Output 04/01/23 04/02/23 04/02/23 23:59 07:59 15:59 Intake Total 1350 Output Total 915 250 Balance 435 -250 Laboratory Tests 04/02/23 07:19 04/02/23 07:19 04/02/23 07:19 WBC 11.7 H RBC 4.40 L Hgb 13.2 L Hct 40.0 L MCV 90.9 MCH 30.0 MCHC 33.0 RDW 12.7 Plt Count 172 MPV 9.8 Sodium 133 L Potassium 4.1 Chloride 103 Carbon Dioxide 25 Anion Gap 5 L BUN 17 Creatinine 0.80 Estim Creat Clear Calc 112 Estimated GFR > 60 Glucose 106 Calcium 8.8 Post-procedural complaints: none Patient Feedback: Patient satisfied with anesthetic care. Other Findings: Chest tube still in place
[2023-04-03] VITALS (7 sets, daily range): BP systolic 135–145; BP diastolic 88–95; PULSE 72–88; RESP 16–18; TEMP 36.3–37.1; O2SAT 90–93
[2023-04-03] MEDS: HYDROcodone/acetaminophen (*CRX) 5-325 MG TABLET 1 TAB PO ×3 (01:40→20:16)
[2023-04-03] MEDS: HYDROcodone/acetaminophen (*CRX) 10-325 MG TABLET 1 TAB PO ×2 (06:01→16:17)
[2023-04-03 06:15] LABS: Hematocrit 40.2 % (42.0-52.0); Hemoglobin 13.8 g/dL (14.0-18.0); Mean Corpuscular HGB Conc 34.3 g/dl (32-36); Mean Corpuscular Hemoglobin 30.4 pg (26-34); Mean Corpuscular Volume 88.5 fl (80-100); Mean Platelet Volume 10.3 fl (7.4-10.4); Platelet Count Result 172 k/mm3 (150-375); Red Blood Count 4.54 M/mm3 (4.6-6.20); Red Cell Distribution Width 12.7 % (11.5-14.5); White Blood Count 8.7 K/mm3 (4.5-10.0)
[2023-04-03 06:36] LABS: Anion Gap 7 mmol/L (8-16); Blood Urea Nitrogen 14 mg/dL (9-20); Calcium 8.8 mg/dL (8.4-10.2); Carbon Dioxide 27 mmol/L (22-30); Chloride 102 mmol/L (98-107); Estimated CRCL calculation 127 ml/min; Estimated Glomerular Filt Rate > 60; Glucose 104 mg/dL (65-110); Potassium 4.1 mmol/L (3.4-5.0); Sodium 136 mmol/L (137-145)
[2023-04-03] MEDS: ENOXAPARIN 40 MG/0.4 ML SYRINGE SUB-Q (09:51)
[2023-04-03] MEDS: NEBIVOLOL HCL 5 MG TABLET 10 MG PO (09:52)
[2023-04-03] MEDS: ASPIRIN 81 MG CHEWABLE TABLET PO (09:52)
[2023-04-03] MEDS: PANTOPRAZOLE 40 MG TABLET PO (09:52)
--- NOTE | 2023-04-03 11:30 | PM.PNGS ---
Progress Note: A&P Assessment and Plan (1) Pneumothorax, right: Code(s): J93.9 - Pneumothorax, unspecified Status: Acute Assessment and Plan: Resolved. Right chest removed today. (2) GERD (gastroesophageal reflux disease): Code(s): K21.9 - Gastro-esophageal reflux disease without esophagitis Status: Acute Assessment and Plan: Status post laparoscopic Prema fundoplication. Tolerating liquid diet okay. Will switch him to a soft diet today. If he is tolerating that the edema discharged home. Chest x-ray in 4hours after removal chest to and if that is okay then he can go home this evening. Subjective Subjective Date/Time Seen: 04/03/23 11:30 Interval history: Patient is doing well today. No chest pain or shortness of breath. Chest x-ray today shows no evidence of right pneumothorax with the chest tube on water seal. He is tolerating full liquids without difficulty. Exam Chest: Other: Right chest tube in place. No air leak with cough. Chest tube site is clean and dry. Resp: Effort & Inspection: normal respiratory effort and able to speak in complete sentences Auscultation: clear to auscultation bilaterally GI: Other: Abdomen is soft and benign. Port site incisions are healing well without redness or drainage. Objective Data Vital Signs Vital Signs: Vital Signs - 24 hr 04/02/23 11:53 04/02/23 16:19 04/02/23 20:00 Temperature 37.1 C 37.0 C 36.2 C L Pulse Rate 93 92 91 Respiratory Rate 18 20 16 Blood Pressure 122/65 135/89 137/93 H Pulse Oximetry 97 95 93 Oxygen Delivery Oxygen Flow Rate 04/03/23 00:00 04/03/23 04:00 04/02/23 20:00 Temperature 37.0 C 37.1 C Pulse Rate 88 87 Respiratory Rate 18 16 Blood Pressure 140/89 135/94 H Pulse Oximetry 93 93 93 Oxygen Delivery High Flow Nasal Cannula Oxygen Flow Rate 1 04/03/23 06:05 04/03/23 09:52 Temperature Pulse Rate 72 Respiratory Rate Blood Pressure Pulse Oximetry 91 Oxygen Delivery Oxygen Flow Rate Intake/Output Intake/Output: Intake & Output 03/31/23 04/01/23 04/02/23 04/03/23 23:59 23:59 23:59 23:59 Intake Total 50 1880 718 Output Total 2090 1080 Balance 69 -317 -650 Meds/Results Medications: Active Medications Generic Name Dose Route Start Last Admin Trade Name Freq PRN Reason Stop Dose Admin Acetaminophen 500 mg 04/01/23 17:58 Acetaminophen 500 Mg Tablet PO Q6H PRN Mild Pain (1-3) or Fever Hydrocodone Bitart/Acetaminophen 1 tab 04/01/23 17:58 04/03/23 09:53 Hydrocodone/Acetaminophen (*Crx) 5-325 Mg Tablet PO 1 tab Q4H PRN Administration Pain Rated 4-6 Hydrocodone Bitart/Acetaminophen 1 tab 04/01/23 17:58 04/03/23 06:01 Hydrocodone/Acetaminophen (*Crx) 10-325 Mg Tablet PO 1 tab Q6H PRN Administration Pain Rated 7-10 Alprazolam 0.5 mg 04/01/23 17:58 Alprazolam (*Crx) 0.5 Mg Tablet PO TID PRN Anxiety Aspirin 81 mg 04/02/23 08:00 04/03/23 09:52 Aspirin 81 Mg Chewable Tablet PO 81 mg DAILY@0800 LANCE Administration Enoxaparin Sodium 40 mg 04/02/23 09:00 04/03/23 09:51 Enoxaparin 40 Mg/0.4 Ml Syringe SUB-Q 40 mg DAILY LANCE Administration Ibuprofen 800 mg in 200 mls @ 400 mls/hr 04/01/23 17:58 Caldolor 800 Mg/200 Ml IVPB Q6H PRN Pain Rated 1-3 Morphine Sulfate 2 mg 04/01/23 17:58 Morphine Sulfate (*Crx) 2 Mg/Ml Inj IV PUSH Q2H PRN Pain Rated 4-6 Morphine Sulfate 4 mg 04/01/23 17:58 04/02/23 19:32 Morphine Sulfate (*Crx) 4 Mg/Ml Inj IV PUSH 4 mg Q2H PRN Administration Pain Rated 7-10 Naloxone HCl 0.1 mg 04/01/23 17:58 Naloxone Hcl 0.4 Mg/Ml Vial IV PUSH Q2M PRN Opiate Reversal Nebivolol 10 mg 04/02/23 09:00 04/03/23 09:52 Nebivolol Hcl 5 Mg Tablet PO 10 mg DAILY LANCE Administration Pantoprazole Sodium 40 mg 04/02/23 09:00 04/03/23 09:52 Pantoprazole 40 Mg Tablet PO 40 mg
--- NOTE | 2023-04-03 12:30 | PC.NURSE ---
Patient sitting in bed upon morning assessment. Chest tube in place, dressing CDI, no drainage. 1145: Chest tube removed by MD with no complications. CXR scheduled for 1600. Family at bedside.
--- NOTE | 2023-04-03 16:31 | PC.NURSE ---
[address] Whelan patient can discharge after supper if he is able to tolerate solid food.
[2023-04-04 06:14] LABS: Hematocrit 42.9 % (42.0-52.0); Hemoglobin 14.5 g/dL (14.0-18.0); Mean Corpuscular HGB Conc 33.8 g/dl (32-36); Mean Corpuscular Volume 88.8 fl (80-100); Mean Platelet Volume 10.2 fl (7.4-10.4); Platelet Count Result 194 k/mm3 (150-375); Red Blood Count 4.83 M/mm3 (4.6-6.20); Red Cell Distribution Width 12.4 % (11.5-14.5); White Blood Count 7.9 K/mm3 (4.5-10.0)
[2023-04-04 06:19] VITALS: BP 140/94; PULSE 90; RESP 16; TEMP 36.5; O2SAT 92
[2023-04-04 06:31] LABS: Anion Gap 10 mmol/L (8-16); Blood Urea Nitrogen 15 mg/dL (9-20); Calcium 9.2 mg/dL (8.4-10.2); Carbon Dioxide 28 mmol/L (22-30); Chloride 99 mmol/L (98-107); Estimated CRCL calculation 112 ml/min; Estimated Glomerular Filt Rate > 60; Glucose 103 mg/dL (65-110); Potassium 4.1 mmol/L (3.4-5.0); Sodium 137 mmol/L (137-145)
[2023-04-04] MEDS: ASPIRIN 81 MG CHEWABLE TABLET PO (08:38)
[2023-04-04] MEDS: PANTOPRAZOLE 40 MG TABLET PO (08:38)
[2023-04-04 08:39] VITALS: PULSE 84
[2023-04-04] MEDS: NEBIVOLOL HCL 5 MG TABLET 10 MG PO (08:39)
[2023-04-04] MEDS: ENOXAPARIN 40 MG/0.4 ML SYRINGE SUB-Q (08:44)
[2023-04-04] MEDS: HYDROcodone/acetaminophen (*CRX) 5-325 MG TABLET 1 TAB PO (10:40)
--- NOTE | 2023-04-16 09:40 | PM.DS ---
DS: Admitting Diagnosis Discharge Date 04/04/23 Admitting Diagnosis Recalcitrant gastroesophageal reflux disease Essential hypertension DS: Discharge Diagnosis Discharge Diagnosis (1) Nonerosive gastroesophageal reflux disease: Code(s): K21.9 - Gastro-esophageal reflux disease without esophagitis Status: Chronic (2) Pneumothorax, right: Code(s): J93.9 - Pneumothorax, unspecified Status: Resolved (3) Hypertension: Qualifiers: Hypertension type: primary hypertension Qualified Code(s): I10 - Essential (primary) hypertension Code(s): I10 - Essential (primary) hypertension Status: Chronic DS: Summary Hospital Course Hospital Course: Patient is a 47-year-old man who has had significant problems with gastroesophageal reflux disease. He had an EGD which showed nonerosive gastroesophageal reflux. He had been taking Nexium twice a day and still would have episodes of regurgitation and reflux. He was seen in the office. He had esophageal manometry as well as an upper GI. He was taken to surgery on 04/01/2023 and laparoscopic Prema fundoplication was performed. During the surgery, while dissecting the upper esophagus, an opening was made in the parietal pleura of the right chest. Patient had evidence of a right pneumothorax clinically and by portable x-ray. A right chest tube was placed during the surgery which resolved this problem. The surgery was completed uneventfully. Postoperatively, the chest tube was placed to water seal on postop day 1. It was able to be removed on postoperative day 2. By postoperative day 3., the patient's pain was diminished and he was very comfortable with only oral analgesics. He was ambulating and tolerating full liquids without difficulty. He was able to be discharged in good condition on 04/04/2023. He was continued on his Nexium once a day postop Status at Discharge Functional status at discharge: independent ambulation Overall status at discharge: patient is progressing back to baseline Time Spent with Patient Time attestation: Total time spent providing and/or coordinating discharge services: Time spent: Less than 30 minutes Discharge Plan Discharge Attending physician on discharge: Hunter Cuadra Consulting providers: Efraín Alaniz; Rufus Garrett; Dusty Han; Deon Gonzales; Nick Valderrama; Cristino Toro; Victor Manuel Rhodes Discharging Clinician: Sherif Whelan Patient Disposition: Home, Self-Care Activity: as tolerated and other - see discharge instructions Diet: other - see discharge instructions Discharge Instructions: Ambulate 3-4 x per day and as tolerated. No lifting over 15-20lbs. May bathe or shower once chest dressing is off or can be removed. Stairs are OK. May drive a car in 3 days. Full Liquid diet with Ensure Enlive for now. Eat/Drink slowly, as we discussed. Continue Nexium daily after discharge. Will stop it after about a month. Call for severe pain (chest or abdomen), fever >101, vomitting, shortness of breath, or other significant change in condition. Patient Instructions: Chest Tubes (DC) Stand Alone Forms: General Discharge Information Follow-up/Referrals: Hunter Cuadra MD [Physician] - 2 Weeks Discharge Medications: Continued alprazolam 0.5 mg Tablet 0.5 mg PO TID PRN (Reason: Anxiety) aspirin 81 mg Tablet 81 mg PO DAILY nebivolol [Bystolic] 10 mg Tablet 10 mg PO DAILY omega [id number] oil [Fish Oil] 1,000 mg (120 mg-180 mg) Capsule 1 cap PO DAILY Discontinued esomeprazole magnesium [Nexium] 40 mg Capsule,Delayed Release(Dr/Ec) 40 mg PO BID Date of admission: 04/02/23 09:02 Primary Care Provider: Tay,Denise Chacon Admitting Provider: Hunter Cuadra Attending physician on admission: Sherif Whelan Condition: Improved
== END 2023-04-04 10:55 | disposition home or self-care (01) | DRG 327 ==
LOC: ANH3MEDSUR 13:07 → ANHSURGERY 04-21 08:51
PROVIDERS: Admitting Provider Surgery; PCP Nurse Practitioner Family; Visit Provider Surgery
PROC: 0DV44ZZ Restriction of Esophagogastric Junction, Percutaneous Endoscopic Approach (ICD-10-PCS; CPT 43281; principal; 2023-04-01 12:00)
DX: K21.9 Gastro-esophageal reflux disease without esophagitis (principal); J95.811 Postprocedural pneumothorax; K44.9 Diaphragmatic hernia without obstruction or gangrene; I10 Essential (primary) hypertension; Z87.891 Personal history of nicotine dependence; Z79.82 Long term (current) use of aspirin
CPT/HCPCS: 36415; 71045; 71046; 80048; 85027; A9270; C1729; J0330; J0690; J1100; J1170; J1200; J1650; J2250; J2270; J2371; J2405; J2704; J3010; J7030; J7120

== ENCOUNTER 2023-04-29 09:55 | Outpatient (CLI) | payer OTHER, SELFPAY ==
--- NOTE | ~2023-04-29 | XR_ITS ---
EXAMINATION: XR chest 2V 04/29/2023 10:13 INDICATION: Chest pain PROCEDURE: 2 view chest COMPARISON: Comparison to multiple prior studies sequentially, with oldest reviewed study dated 03/13. . FINDINGS: The lungs are clear. The cardiomediastinal silhouette is within normal limits. There are no pleural effusions. There is no pneumothorax suspected. IMPRESSION: 1: NO ACUTE CARDIOPULMONARY DISEASE. Reviewed, dictated and finalized at location A. URCE CENTER TEACHER
== END 2023-04-29 09:56 | disposition home or self-care (01) ==
PROVIDERS: PCP Nurse Practitioner Family; Visit Provider Surgery
DX: R07.9 Chest pain, unspecified (principal); Z87.09 Personal history of other diseases of the respiratory system
CPT/HCPCS: 71046

== ENCOUNTER 2024-04-28 13:56 | Outpatient (CLI) | payer OTHER, SELFPAY ==
--- NOTE | ~2024-04-28 | XR_ITS ---
EXAM: XR shoulder RT min 2V DATE: 04/28/2024 14:05 HISTORY: LIFTING INJURY OF R SHOULDER X 1 WK AGO . COMPARISON: None available. FINDINGS: Normal mineralization. No fracture or dislocation. No lytic or blastic lesion. Mild degene rative change at the AC joint and glenohumeral joint. No erosion or periosteal change. Soft tissues w ithin normal limits. IMPRESSION: Mild polyarticular right shoulder osteoarthritis. Reviewed, dictated and finalized at location K. UP MECHANIC
--- OUTSIDE RECORDS SUMMARY | 2024-05-04 07:02 | XMS_ITS | Data Portability ---
Author Organization [place] - [facility] [employer], Main Office Address [address] [place] [address] Assessment Encounter Date Assessment Date Assessment LastModified by Organization Details LastModified Time 12/02/2022 12/02/2022 Cscope- cologuard 07/2021- repeat 07/2024 PSA- age 50 WEA-12/02/22 Call office if worse, ER if life threatening illness RTC 6 weeks He voices understanding of plan and agrees Not available 12/02/2022 16:29:38 01/13/2023 01/13/2023 Cscope- cologuard 07/2021- repeat 07/2024 PSA- age 50 WEA-12/02/22 Call office if worse, ER if life threatening illness RTC 6 months and PRN He voices understanding of plan and agrees Not available 01/13/2023 14:23:46 Plan of Treatment Reminders Order Date Submit Date Provider Last Modified By Organization Details Last Modified Time Details Appointments Any 15 2024 01:00P Spenser Lopez APRN Not available Not available Not available Lab CBC w/ auto diff 2022 023 [employer] [facility], [address], [place], [address], 01/13/2023 15:40:37 CMP, serum or plasma 2022 023 [facility], [address], [place], [address], 01/13/2023 15:40:36 HbA1c (hemog lobin A1c), blood 2022 023 [facility], [address], [place], [address], 01/13/2023 15:40:37 lipid panel, serum 2022 023 [facility], [address], [place], [address], 01/13/2023 15:40:36 TSH, serum or plasma 2022 023 [facility], [address], [place], [address], 01/13/2023 15:40:37 CBC w/ auto diff 2023 024 [email or web address], [address], [place], [address], 08/11/2023 09:01:01 CMP, serum or plasma 2023 024 [email or web address], [address], [place], [address], 08/11/2023 09:01:01 TSH, serum or plasma 2023 024 [email or web address], [address], [place], [address], 08/11/2023 09:01:01 HbA1c (hemog lobin A1c), blood 2023 024 [email or web address], [address], [place], [address], 08/11/2023 09:01:01 lipid panel, serum 2023 024 [email or web address], [address], [place], [address], 08/11/2023 09:01:01 lipid panel, serum 2023 024 [facility], [address], [place], [address], 02/16/2024 08:34:57 hepati tis C virus Ab, serum 2023 024 [email or web address], [address], [place], [address], 02/23/2024 08:28:02 HbA1c (hemog lobin A1c), blood 2024 025 [facility], [address], [place], [address], 05/03/2024 08:58:50 lipid panel, serum 2024 025 [facility], [address], [place], [address], 05/03/2024 08:58:49 CMP, serum or plasma [address] [facility], [address], [place], [address], 05/03/2024 08:58:49 CBC w/ auto diff 2024 025 [facility], [address], [place], [address], 05/03/2024 08:58:47 T4, free, serum [address] [facility], [address], [place], [address], 05/03/2024 08:58:48 TSH, serum or plasma 2024 025 [facility], [address], [place], [address], 05/03/2024 08:58:48 Referral cardio logist referr al 2022 023 [email or web address] [place], [address], [address], [address], 04/30/2023 12:12:44 gastro entero logist referr al - severe GERD sympto ms unreli eved by PPIs 2022 023 [email or web address] Phil Arechiga MD, [address], [address], [place], [address], 04/30/2023 12:12:57 neurol ogist referr al - Please call michelle catherine to butch lange. 2023 024 sarah [facility], [address] [place] [address] , [address], [place], [address], 04/18/2024 11:16:45 neurol ogist referr al 2024 025 [email or web address] a [facility], [address] [place] [address] , [address], [place], [address], 05/03/2024 09:05:28 Procedures None record ed. Surgeries None record ed. Imaging None record ed. Medication Orders esomep razole magnes ium 40 mg capsul e,john yed releas e 2022 023 [email or web address] [facility], [address], [address], [place], [address], 08/03/2023 10:10:02 alpraz olam 0.5 mg tablet 2022 023 [facility], [address], [address], [place], [address], 01/13/2023 14:12:39 nebivo lol 10 mg tablet 2023 024 [facility], [address], [address], [place], [address], 08/04/2023 15:04:32 alpraz olam 0.5 mg tablet 2023 024 [facility], [address], [address], [place], [address], 08/04/2023 15:04:34 cyclob enzapr ine 10 mg tablet 2023 024 [facility], [address], [address], [place], [address], 02/09/2024 14:20:15 Patient TargetsNo targets recorded. Patient Instructions Encounter Date Encounter Id Patient Instructions Last Modified By Organization Details Last Modified Time 12/02/2022 [id number] INFLUENZA VACCIN E TD/TDAP Recommended today, patient declined Ordered Patient will get at local pharmacy/health department PNEUMONIA VACCINE Ordered Recommend ed today, patient declined Patient will get at local pharmacy/health department Recomm ended at age 65 SHINGLES PSA COLORECTAL SCREENING DEPRESSION SCREENING Negative BMI Overweight continue your current weight loss efforts try to lose 5% of your body weight NUTRITION Heart Healthy Diet PHYSICAL ACTIVITY minimum of 10-20 minutes of activity that causes mild breathlessness/da y minimum of 20-30 minutes activity that causes mild breathlessness/da y minimum of 30-40 minutes of activity that causes mild breathlessness/da y ALCOHOL USE No alcohol use TOBACCO USE former smoker LUNG CANCER SCREENING SEXUALLY ACTIVE Yes, Patient is in monogamous relationship HEPATITIS C SCREENING Not indicated GLUCOSE SCREENING Ordered LIPID SCREENING [email or web address] Not available 12/02/2022 16:33:29 08/04/2023 [id number] Follow up in 6 months Obtain labs Refills sent to pharmacy Not available 08/04/2023 15:03:44 02/09/2024 [id number] Follow up in 6 months Obtain labs Tests: Referral: Neurology-[facility]-dizzines s. Recommend: Tetanus vaccine Not available 02/09/2024 14:19:47 05/03/2024 [id number] Follow up in 3 months Obtain labs Tests: Referral: [facility] neurology--dizzin ess Recommend: Tetanus vaccine Not available 05/03/2024 08:50:05 Reason for Referral [employer] Referral for Ch est pain Referring Physician: Denise Cross, Internal Medicine, Encounter Date: 12/02/2022 Tapper Supervisor Referral for Gastroesophageal reflux disease severe GERD symptoms unrelieved by PPIs Referring Physician: Denise Cross, Internal Medicine, Encounter Date: 12/02/2022 Neurologist Referral for Diz ziness Please call patient to schedule. Referring Physician: Taryn Lopez, Internal Medicine, Encounter Date: 02/09/2024 Neurologist Referral for Diz ziness Referring Physician: Taryn Lopez, Internal Medicine, Encounter Date: 05/03/2024 Results Created Date Observation Date Name Description Value Unit Range Abnormal Flag Note LastModifiedBy Organization Detail LastModifiedTime 12/19/1912/18/2022 US, echo ardio gram No observ ation record ed. [address] [facility] [address], [place], [address], 12/21/2022 15:19:42 01/06/20 23 01/05/2023 exerc ischucky diaz s test No observ ation record ed. [address] [facility] [address], [place], [address], 01/06/2023 16:28:11 01/12/20 23 01/11/2023 [place], modif ied jelena jacobson study No observ ation record ed. [address] [place] [address], [address], 01/11/2023 17:13:33 03/29/20 23 03/29/2023 XR, chest , 2 view No observ ation record ed. [address] [place] [address], [address], 03/29/2023 15:25:07 04/01/20 23 04/01/2023 XR, chest No observ ation record ed. [address] [place] [address], [address], 04/01/2023 15:55:32 04/01/20 23 04/01/2023 XR, chest , 2 view No observ ation record ed. [address] [place] [address], [address], 04/07/2023 14:16:47 04/02/20 23 04/02/2023 XR, chest No observ ation record ed. [address] [address], [place], [address], 04/07/2023 14:17:07 04/02/20 23 04/02/2023 XR, chest No observ ation record ed. [address] [address], [place], [address], 04/07/2023 14:17:22 04/02/20 23 04/02/2023 XR, chest No observ ation record ed. [address] [address], [place], [address], 04/07/2023 14:17:38 04/03/20 23 04/03/2023 XR, chest No observ ation record ed. [address] [address], [place], [address], 04/07/2023 14:17:53 04/03/20 23 04/03/2023 XR, chest No observ ation record ed. [address] [address], [place], [address], 04/07/2023 14:18:11 04/29/19 24 04/29/2023 XR, chest No observ ation record ed. [address] [address], [place], [address], 04/29/2023 12:20:02 04/28/19 25 04/28/2024 XR, shoul reyna, 2 or more view No observ ation record ed. [address] [address], [place], [address], 05/01/2024 14:49:54 Result Notes None recorded. Problems Name Problem SNOMED Code Status Onset Date Resolution Date Notes Provider Name and Address Organization Details Recorded Time Laurai ferkay 15846616 Active 2022 Taryn Lopez APRN [address], [address], [place], [address] , [place] [facility] 4 14:55:38 Anxiety 10983983 Active 2022 Taryn Lopez APRN [address], [address], [place], [address] , [place] [facility] 4 14:55:27 Prediabet es 425367097 Active 2023 Taryn Lopez APRN [address], [address], [place], [address] , [employer] [place] [facility] 4 12:06:24 Dizziness 390259157 Active 2023 Taryn Lopez APRN [address], [address], [place], [address] , [employer] [place] [facility] 4 11:46:54 Strain of back muscle 736123510 Active 2023 Taryn Lopez APRN [address], [address], [place], [address] , [employer] [place] [facility] [employer] [facility] 4 10:17:22 Injury of right shoulder 02663904721 757065 Active 2024 Taryn Lopez APRN [address], [address], [place], [address] , [employer] [place] [facility] 5 09:28:07 Pain of right shoulder region Active 2024 Taryn Lopez APRN [address], [address], [place], [address] , [employer] [place] [employer] [facility] 5 13:53:45 Urticaria 177766411 Active 2016 Not Available [employer] 3 04:53:32 Insomnia 843543600 Active 2016 Not Available [employer] 3 04:53:32 Abdominal pain 50857063 Active Not Available [facility] 3 04:53:32 Gastroeso phageal reflux disease 368594198 Completed 201708/04/2023 Taryn EllisAMADOR mclean [address] [facility], [address], [place], [address] , [employer] 4 14:59:04 Headache 06170676 Active Not Available [facility] 3 04:53:32 Acute low back pain 823605570 Active Not Available [facility] 3 04:53:32 Pruritic disorder 132071149 Active Not Available [facility] 3 04:53:32 Chest pain 02496291 Active Not Available [facility] 3 04:53:32 Laceratio n - injury 910416098 Active Not Available [facility] 3 04:53:32 Sinusitis 56076857 Active Not Available [facility] 3 04:53:32 Cervical radiculop athy 98505704 Active Not Available [facility] 3 04:53:33 Carpal tunnel syndrome 52631372 Active Not Available [facility] 3 04:53:33 Essential hypertens ion 03489792 Active Taryn AMADOR Lopez [address] [facility], [address], [place], [address] , [employer] 4 14:55:30 Pain in elbow 45188839 Active 2016 Not Available [facility] 3 04:53:33 Neck pain 27118702 Active 2016 Not Available [facility] 3 04:53:33 Paresthes ia 06449506 Active Not Available [facility] 3 04:53:33 Problem Notes None recorded. Procedures Surgical History Date Name Laterality Status Provider Name and Address Organization Details Recorded Time 03/31/20 Prema fundoplication completed Zoraida Torres MA [employer] 08/04/2023 14:22:14 repair of shoulder completed Not Available [facility] 06/10/2022 04:43:09 Imaging Results Imaging Date Name Status LastModified by Organization Details LastModified Time 12/18/2022 US, echocardiogram completed [email or web address] [address], [place], [address], 12/21/2022 15:19:42 01/05/2023 exercise stress test completed [address] [facility] [address], [place], [address], 01/06/2023 16:28:11 01/11/2023 [place], modified barium swallow study completed [address], [address], 01/11/2023 17:13:33 03/29/2023 XR, chest, 2 view completed [address], [address], 03/29/2023 15:25:07 04/01/2023 XR, chest completed [address], [address], 04/01/2023 15:55:32 04/01/2023 XR, chest, 2 view completed [address], [address], 04/07/2023 14:16:47 04/02/2023 XR, chest completed [address], [address], 04/07/2023 14:17:07 04/02/2023 XR, chest completed [address], [address], 04/07/2023 14:17:22 04/02/2023 XR, chest completed [address], [address], 04/07/2023 14:17:38 04/03/2023 XR, chest completed [address], [address], 04/07/2023 14:17:53 04/03/2023 XR, chest completed [address] [place] [address], [address], 04/07/2023 14:18:11 04/29/2023 XR, chest completed [address] [place] [address], [address], 04/29/2023 12:20:02 04/28/2024 XR, shoulder, 2 or more view completed [address] [facility], [place], [address], 05/01/2024 14:49:54 Procedure Notes None recorded. Medical Equipment None Reported. Allergies Allergen ID Allergen Name Allergen Category Reaction Reaction Severity Criticality Documentation Date Start Date Code Code System Note Provider Name and Address Organization Details Recorded Time 51130 atorvasta tin medicatio n lighthead edness Not available low 02/09/2024 51938 RxNorm GIULIANA Parikh [place] [employer] [place] [employer] [facility] 4 13:59:57 8079 melatonin medicatio n Not available Not available Not available 06/10/2022 6711 RxNorm heada ches Not Available [facility] 3 05:03:57 Medications Name Sig Start Date Stop Date Status Note LastModified by Organization Details LastModified Time celecoxib 200 mg capsule Take 1 capsule twice a day by oral route. active Not Available Not Available No t Available cyclobenz aprine 10 mg tablet TAKE 1 TABLET BY MOUTH AT BEDTIME NEEDED active Not Available Not Available No t Available amoxicill in 500 mg capsule active Not Available Not Available Not Available prednison e 10 mg tablet Take by oral route. [id number], 2w7cioc, 2i8xtnu, 1 x3days 08/11 completed Not Available Not Available Not Available trazodone 50 mg tablet TAKE ONE TABLET DAILY AT BEDTIME active Not Available Not Available No t Available atorvasta tin 10 mg tablet Take 1 tablet every day by oral route. 02/08 completed Not Available Not Available Not Available azithromy yana 250 mg tablet TAKE 2 TABLETS BY MOUTH FOR 1 DAY THEN TAKE 1 TABLET BY MOUTH DAILY FOR 4 DAYS 07/16 completed Not Available Not Available Not Available ibuprofen 800 mg tablet Take one tab PO daily PRN * take with foot 03/19 completed Not Available Not Available Not Available benzonata te 200 mg capsule Take 1 capsule 3 times a day by oral route. active Not Available Not Available No t Available hydrocodo ne 5 mg-acetam inophen 325 mg tablet active Not Available Not Available Not Available sulfameth oxazole 800 mg-trimet hoprim 160 mg tablet Take 1 tablet every 12 hours by oral route for 7 days. 01/28 completed Not Available Not Available Not Available hydrocodo ne 10 mg-acetam inophen 325 mg tablet 01/15 completed Not Available Not Available Not Available aspirin 81 mg tablet,de layed release Take 1 tablet every day by oral route. active Not Available Not Available No t Available tramadol 50 mg tablet TAKE 1 TABLET BY MOUTH EVERY 6 HOURS DIRECTED FOR SHOULDER PAIN active Not Available Not Available No t Available triamcino lone acetonide 0.1 % topical cream Apply 1 applicat ion twice a day by topical route as needed. active Not Available Not Available No t Available Zantac 150 mg tablet Take 1 tablet every day by oral route. 05/24 completed in the afternoo n Not Available Not Available Not Available ketorolac 10 mg tablet TAKE 1 TABLET BY MOUTH EVERY 6 HOURS FOR 4 DAYS 08/03 completed Not Available Not Available Not Available meloxicam 7.5 mg tablet active Not Available Not Available Not Available oxycodone -acetamin ophen 5 mg-325 mg tablet TAKE 1/2-1 TABLET BY MOUTH EVERY EVERY 6 HOURS HOURS NEEDED FOR PAIN 08/03 completed Not Available Not Available Not Available alprazola m 0.5 mg tablet TAKE 1 TABLET BY MOUTH DAILY AT BEDTIME NEEDED (NO ALCOHOL, DRIVING, OR MIXING WITH OTHER SEDATING MEDS) 2023 active Not Available Not Available Not Avai lable alprazola m 0.25 mg tablet TAKE 1 TABLET DAILY 08/11 completed Not Available Not Available Not Available cephalexi n 500 mg capsule Take 1 capsule twice a day by oral route for 7 days. active Not Available Not Available No t Available pantopraz ole 40 mg tablet,de layed release active Not Available Not Available Not Available esomepraz ole magnesium 40 mg capsule,d elayed release TAKE 1 CAPSULE BY MOUTH TWICE DAILY 08/02 completed Not Available Not Available Not Available nystatin 100,000 unit/gram topical cream APPLY TO THE AFFECTED AREA(S) BY TOPICAL ROUTE 2 TIMES PER DAY 04/18 completed Not Available Not Available Not Available hydroxyzi ne HCl 25 mg tablet Take 1 tablet every day by oral route at bedtime. active Not Available Not Available No t Available methylpre dnisolone 4 mg tablets in a dose pack Take 1 dose pk by oral route. active Not Available Not Available No t Available fluocinon chava 0.05 % topical cream APPLY TO THE AFFECTED AREA(S) BY TOPICAL ROUTE 2 TIMES PER DAY active Not Available Not Available No t Available ondansetr on 4 mg disintegr ating tablet DIS 1 T PO Q 8 H PRN N 01/15 completed Not Available Not Available Not Available fluticaso ne propionat e 50 mcg/actua tion nasal spray,gloria pension 2 sprays each nostril qd active Not Available Not Available No t Available betametha sone dipropion ate 0.05 % lotion active Not Available Not Available Not Available Wellbutri n XL 150 mg 24 hr tablet, extended release Take 1 tablet every day by oral route. 05/24 completed Not Available Not Available Not Available Fish Oil 07/16 completed Not Available Not Available Not Available nebivolol 10 mg tablet TAKE 1 TABLET BY MOUTH DAILY 2023 active Not Available Not Available Not Avai lable ketorolac 30 mg/mL injection solution Inject 1 mL every 6 hours by intraven ous route. active Not Available Not Available No t Available Fish Oil 1,000 mg (120 mg-180 mg) capsule Take by oral route. active Not Available Not Available No t Available Vitals Date Recorded Body height Body mass index (BMI) Body weight Body temperature Heart rate Oxygen saturation Oxygen saturation in Arterial blood by Pulse oximetry Systolic blood pressure Diastolic blood pressure Provider Name and Address Organization Details Last Updated DateTime 3 185.42 cm 29.8 kg/m2 512852. 88 g 97.6 [degF] 82 /min 97 % 97 % 132 mm[Hg] 82 mm[Hg] Mariahtosha Foster MA [facility] [employer] [facility] 3 14:20:29 Date Recorded Body height Body mass index (BMI) Body weight Body temperature Heart rate Oxygen saturation Oxygen saturation in Arterial blood by Pulse oximetry Systolic blood pressure Diastolic blood pressure Provider Name and Address Organization Details Last Updated DateTime 3 185.42 cm 29.9 kg/m2 857761. 47 g 97.7 [degF] 66 /min 98 % 98 % 128 mm[Hg] 76 mm[Hg] Mariah Foster MA [facility] [employer] [facility] 3 13:59:50 Date Recorded Body height Body mass index (BMI) Body weight Body temperature Heart rate Oxygen saturation Oxygen saturation in Arterial blood by Pulse oximetry Systolic blood pressure Diastolic blood pressure Provider Name and Address Organization Details Last Updated DateTime 4 185.42 cm 29.2 kg/m2 070819. 91 g 97.5 [degF] 75 /min 95 % 95 % 118 mm[Hg] 78 mm[Hg] Zoraida Torres MA [facility] [employer] [facility] 4 14:18:09 Date Recorded Body height Body mass index (BMI) Body weight Body temperature Heart rate Oxygen saturation Oxygen saturation in Arterial blood by Pulse oximetry Systolic blood pressure Diastolic blood pressure Provider Name and Address Organization Details Last Updated DateTime 4 185.42 cm 28.2 kg/m2 43082.7 7 g 96.8 [degF] 56 /min 97 % 97 % 118 mm[Hg] 70 mm[Hg] Zoraida Torres MA [facility] [employer] [facility] 4 13:58:37 Date Recorded Body height Body mass index (BMI) Body weight Body temperature Heart rate Oxygen saturation Oxygen saturation in Arterial blood by Pulse oximetry Systolic blood pressure Diastolic blood pressure Provider Name and Address Organization Details Last Updated DateTime 5 185.42 cm 30.2 kg/m2 738749. 65 g 98.1 [degF] 72 /min 99 % 99 % 134 mm[Hg] 90 mm[Hg] Zoraida Torres MA [facility] [employer] [facility] 5 08:38:59 Social History Question Answer Notes LastModified by Organization Details LastModified Time Tobacco Smoking Status Former Smoker Quit about 10yrs ago IRVIN [place] [facility] [place] [employer] 01/13/2023 13:50:07 Do You Have An Advance Directive? No [id number] Information not available 06/10/2022 What Is Your Level Of Alcohol Consumption? None Quit April 05, 2019 [id number] Information not available 06/10/2022 What Is Your Level Of Caffeine Consumption? Moderate Information not available 02/09/2024 In The 14 Days Before Symptom Onset, Have You Had Close Contact With A Laboratory-conf irmed COVID-19 While That Case Was Ill? No [email or web address] Information not available 01/13/2023 In The 14 Days Before Symptom Onset, Have You Had Close Contact With A Person Who Is Under Investigation For COVID-19 While That Person Was Ill? No [email or web address] Information not available 01/13/2023 Are You Currently Employed? Yes Information not available 02/09/2024 What Type Of Diet Are You Following? 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 No [email or web address] Information not available 01/13/2023 What Is The Fluoride Status Of Your Home? Unknown [email or web address] Information not available 01/13/2023 When Did You Quit Smoking? 11-15yearssincelas des [email or web address] Information not available 01/13/2023 Are There Any Guns Present In Your Home? Yes [email or web address] Information not available 01/13/2023 Do You Use Insect Repellent Routinely? No [email or web address] Information not available 01/13/2023 Where Do You Live? SingleLevelHouse [email or web address] Information not available 01/13/2023 Do You Have A Medical Power Of Admiralty Lawyer? No [email or web address] Information not available 01/13/2023 What Was The Date Of Your Most Recent Tobacco Screening? 05/03/2024 Information not available 05/03/2024 Do You Have Any Pets? Yes [email or web address] Information not available 01/13/2023 What Is Your Relationship Status? [id number] Information not available 06/10/2022 Do You Use Your Seat Belt Or Car Seat Routinely? Yes [email or web address] Information not available 01/13/2023 Do You Have Smoke And Carbon Monoxide Detectors In Your Home? Yes [email or web address] Information not available 01/13/2023 Are You Passively Exposed To Smoke? No [email or web address] Information not available 01/13/2023 Are There Any Smokers In Your House? Yes [email or web address] Information not available 01/13/2023 How Much Tobacco Do You Smoke? No Information not available 02/09/2024 Do You Feel Stressed (tense, Restless, Nervous, Or Anxious, Or Unable To Sleep At Night)? [id number] [email or web address] Information not available 01/13/2023 Do You Use Any Illicit Or Recreational Drugs? No [email or web address] Information not available 01/13/2023 Do You Use Sunscreen Routinely? Yes Information not available 01/13/2023 Have You Recently Traveled Abroad? No [email or web address] Information not available 01/13/2023 Do You Have Any Dietary Restrictions? No [email or web address] Information not available 01/13/2023 Do You Or Have You Ever Used Any Other Forms Of Tobacco Or Nicotine? No Information not available 01/13/2023 Sex: Unknown Functional Status Question Answer Note LastModified by Organization D etails LastModified Time What is your exercise level? Moderate Information not available 02/09/2024 Mental Status None recorded. Family History Relationship Description Onset Age of this Age Resolved Age Notes LastModified by Organization Details LastModified Time Father Alzheimer's disease [email or web address] Not available 08:30:22 Father Dementia [email or web address] Not avail able 05/03/2024 08:30:22 Father Hypertensive disorder [id number] Not available 06/10/2022 04:43:20 Medical History No medical history recorded. Immunizations Vaccine Type Date Status Note Provider Nam e and Address Organization Details Recorded Time Influenza, split virus, quadrivalent, PF 3 completed MELINDA Carvajal [address], [address], [place], [address], [employer] 01/13/2023 14:21:05 Influenza, split virus, quadrivalent, PF 2 completed Not Available [facility] 06/10/2022 05:03:35 Influenza, split virus, quadrivalent, preservative 6 completed [facility] 06[facility]10/[facility] 05:03:35 Tdap 4 completed Not Available [facility] 06/10/2022 05:03:35 Influenza, split virus, trivalent, preservative 4 completed Taryn Lopez APRN [address], [address], [place], [address], [employer] 02/09/2024 14:07:27 Influenza, split virus, trivalent, PF 4 completed Taryn Lopez APRN [address], [address], [place], [address], [employer] 02/10/2024 07:58:01 Tdap 5 completed GIULIANA Parikh [employer] 05/03/2024 14:15:43 Past Encounters Encounter ID Performer Location Encounter Start Date Encounter Closed Date Diagnosis/Indication Diagnosis SNOMED-CT Code Diagnosis ICD10 Code Diagnosis Note [id number] [facility] [place] [address] [place] [address] 11/13/2020 00:00:00 11/13/2020 16:22:24 [id number] [facility] [place] [address] [place] [address] 07/16/2021 00:00:00 07/16/2021 15:28:13 [id number] [facility] [place] [address] [place] [address] 01/21/2022 00:00:00 01/21/2022 15:23:34 [id number] [facility] [place] [address] [place] [address] [place] [address] [place] [address] 05/27/2022 00:00:00 05/27/2022 14:42:09 [id number] MELINDA Carvajal [facility] Internal Med [place] [address] [place] [address] [place] [address] 12/02/2022 14:02:48 12/02/2022 14:48:57 Essential hypertension 25049081 I10 on Bystolic Hyperlipidemia 85515375 E78.5 mild, lifestyle measures, check labs Gastroesop hageal reflux disease 280954650 K21.9 increase esomeprazo le to BID, OTC pepcid at hss/p EGDget appt with GIWe discussed lifestyle measures, including avoiding acidic or spicy foods as well as avoiding caffeine and alcohol, avoid eating or drinking 3 hours prior to bedtime, avoid tight-fitt ing clothing, can sleep in an incline Anxiety 61342924 F41.9 on xanax very prn, no alcohol, driving, or mixing with other sedating medscall office if any change in mood or behaviorhe declines psychiatry referral Diabetes m ellitus screening 452414048 Z13.1 Chest pain 09189018 R07. 9 EKG in office NSR rate 68, no ST elevationg et appt with cardiology ER precaution s- to ER if any chest pain recurs Adult heal th examination 769358231 Z00.01 Depression screening 171 998297 Z13.31 [id number] MELINDA Carvajal [facility] Internal Med [place] [address] [place] [address] [place] [address] 01/13/2023 13:48:14 01/13/2023 14:13:07 Essential hypertension 15674530 I10 on Bystolic Hyperlipidemia 26397895 E78.5 mild, lifestyle measures, check labs Gastroesop hageal reflux disease 934468264 K21.9 on esomeprazo le to BID, OTC pepcid at hss/p EGDWe discussed lifestyle measures, including avoiding acidic or spicy foods as well as avoiding caffeine and alcohol, avoid eating or drinking 3 hours prior to bedtime, avoid tight-fitt ing clothing, can sleep in an incline now following GI (Arechiga) and GS ([facility])- planning hiatal hernia repar prior to the end of the year per pt, is going for manometry later this month over at [facility] u Anxiety 97758517 F41.9 on xanax very prn, no alcohol, driving, or mixing with other sedating medscall office if any change in mood or behaviorhe declines psychiatry referral Chest pain 45063458 R07. 9 following cardiology - Dr. Clark s/p echo and stress Brandi precaution s- to ER if any chest pain recurs Administra tion of influenza vaccine 80362583 Z23 [id number] Taryn Lopez APRN [facility] Internal Med [address] [place] [address] 08/04/2023 13:58:05 08/04/2023 15:04:53 Essential hypertension 58091941 I10 Hyperlipidemia 13063566 E78.5 Anxiety 53706583 F41.9 Renewal of prescription 153076180 Z76.0 [id number] Taryn Lopez APRN [facility] [address] [place] [address] [place] [place] [address] 02/09/2024 13:44:02 02/09/2024 14:31:02 Hepatitis C screening 924028219 Z11.59 Administra tion of influenza vaccine 94951932 Z23 Dizziness 021065611 R42 Strain of back muscle 26 9148672 S39.012A Hyperlipidemia 10886904 E78.5 [id number] Taryn Lopez APRN [facility] Primary Care [facility] [address] [facility] [address] [facility] [address] 05/03/2024 08:29:12 05/03/2024 09:05:28 Hyperlipidemia 90822416 E78.5 Prediabetes 711985990 R7 3.03 Dizziness 648153178 R42 Administra tion of tetanus vaccine 521574196 Z23 Health Concerns Section Related Observation LastModified by Organization Detai ls LastModified Time None Recorded Concern Status LastModified by Organization Details LastModified Time None Recorded Advance Directives Directive N: Payers Encounter Date Sequence Insurance Name Policy Number Policy Torres Covered Member ID Torres Member ID Guarantor Name 12/02/2022 1 [facility] [id number] Fredo Jacobson [id number] Fredo Jacobson 01/13/2023 1 [facility] [id number] Fredo Jacobson [id number] Fredo Jacobson 08/04/2023 1 [facility] [id number] Fredo Jacobson [id number] Fredo Jacobson 02/09/2024 1 [facility] [id number] Fredo Jacobson [id number] rFedo Jacobson 05/03/2024 1 [facility] [id number] Fredo Jacobson [id number] Fredo Jacobson Notes Date Note Type Note Provider Name and Address Organization Details Recorded Time 12/02/2022 text/html Fredo presents today for follow-up. He is also due for his annual wellness exam. He reports that he had an episode of chest pain on Wednesday. He was up walking around with work and started having some substernal chest pain which radiated down the right arm. He reports it then also radiated to his back. This occurred all day and a little bit on Wednesday as well. It is slowly got better. He has not had any more chest pain since that occurred. He does have family history in his father who had a previous OK. He does have other risk factors including high blood pressure and high cholesterol. He is not currently on a cholesterol medicine has been working on diet and exercise. He reports his anxiety has been well controlled lately. He denies any SI or HI today. He reports his GERD symptoms have worsened despite being on a PPI. When he had his EGD he reports the GI doctor talked him about possibly considering a Ac fundoplication in the future. He has not gone back to see GI for an appointment. He denies any nausea or vomiting, denies any blood in the stool or vomiting blood. He is due for labs. Denise Cross, RAVI-Gabbie [address] [facility] [address], [place], [address], [facility] [employer] 12/02/2022 16:34:06 01/13/2023 text/html Fredo presents today for follow-up. He did see Cardiology. He had echo and stress test done. He has not had any further episodes of chest pain. He did get his labs done. We do not have results available for review. We will request those. He reports his anxiety has been under control, but this morning he had an incident with his truck where he left the garage while the garage door still down it has now ripped off the roof of his car. He is requesting refill on his Xanax. He denies any SI or HI today. He uses these very rarely. He did see GI. They are working him up for repair of the hiatal hernia. He has to go over to [facility] to get esophageal manometry done and then they are planning on surgery by the end of the year per patient. He would like to get his flu vaccine today. MELINDA Carvajal [address], [address], [place], [address], [employer] 01/13/2023 14:26:19 08/04/2023 text/html Fredo presents today to establish care. Patient states that he was at home Wednesday working in the yard and started getting dizzy and diaphoretic, hands trembling. He stated that this lasted about 20 minutes. He states that he had abdominal surgery in March. He denies any issues since surgery. 3Daraceli presents today for follow-up. He did see Cardiology. He had echo and stress test done. He has not had any further episodes of chest pain. He did get his labs done. We do not have results available for review. We will request those. He reports his anxiety has been under control, but this morning he had an incident with his truck where he left the garage while the garage door still down it has now ripped off the roof of his car. He is requesting refill on his Xanax. He denies any SI or HI today. He uses these very rarely. He did see GI. They are working him up for repair of the hiatal hernia. He has to go over to [facility] to get esophageal manometry done and then they are planning on surgery by the end of the year per patient. He would like to get his flu vaccine today. Taryn Lopez APRN [address], [place], [address], [place] [employer] 08/04/2023 15:04:17 02/09/2024 text/html Fredo presents today for 6 month follow up. Fredo states that he is still getting dizzy every so often. He states that every since he had his hiatal hernia surgery. 08/04/2023araceli presents today to establish care. Patient states that he was at home Wednesday working in the yard and started getting dizzy and diaphoretic, hands trembling. He stated that this lasted about 20 minutes. He states that he had abdominal surgery in March. He denies any issues since surgery. 01/13/2023araceli presents today for follow-up. He did see Cardiology. He had echo and stress test done. He has not had any further episodes of chest pain. He did get his labs done. We do not have results available for review. We will request those. He reports his anxiety has been under control, but this morning he had an incident with his truck where he left the garage while the garage door still down it has now ripped off the roof of his car. He is requesting refill on his Xanax. He denies any SI or HI today. He uses these very rarely. He did see GI. They are working him up for repair of the hiatal hernia. He has to go over to [facility] to get esophageal manometry done and then they are planning on surgery by the end of the year per patient. He would like to get his flu vaccine today. Taryn Lopez, [employer] [address] [facility] [facility] [address], [place], [address], [facility] [employer] [facility] [employer] 02/09/2024 15:02:14 05/03/2024 text/html Fredo presents today for shoulder pain. He was at work and picked up and 85 pound duct liner and he felt a pull in his shoulder. He has already been referred to Dr. Dumont since he has seen him before. He states that the he continues to have dizziness that comes on sporadically and lasts a minute or so. Nothing particular brings it on. 02/02/2024araceli presents today for 6 month follow up. Fredo states that he is still getting dizzy every so often. He states that every since he had his hiatal hernia surgery. 08/04/2023mikeriya presents today to establish care. Patient states that he was at home Wednesday working in the yard and started getting dizzy and diaphoretic, hands trembling. He stated that this lasted about 20 minutes. He states that he had abdominal surgery in March. He denies any issues since surgery. Taryn Lopez, SQL DEVELOPER [address] [facility] [facility] [address], [place], [address], [place] [facility] 05/03/2024 10:46:14
== END 2024-04-28 13:57 | disposition home or self-care (01) ==
PROVIDERS: PCP Nurse Practitioner Family; Visit Provider Nurse Practitioner Family
DX: S49.91XA Unspecified injury of right shoulder and upper arm, initial encounter (principal); X58.XXXA Exposure to other specified factors, initial encounter; M19.011 Primary osteoarthritis, right shoulder
CPT/HCPCS: 73030